=== PATIENT | male | born 1995 | race Caucasian/White ===

== ENCOUNTER 2021-02-11 19:19 | Emergency (ER) | payer SELFPAY ==
[~2021-02-11] VITALS: Ht 175.3 cm; Wt 88.2 kg
[2021-02-11] MEDS ORDERED: LIDOCAINE 1% MDV 20ML VIAL SC ONE (21:50)
[2021-02-11] MEDS ORDERED: NEOSPORIN OINT 0.9 GM PKT TOP ONE (22:10)
[2021-02-11 22:16] VITALS: BP 128/78
== END 2021-02-11 22:17 | disposition home or self-care (01) ==
LOC: M ED 19:19
DX: S61.011A Laceration without foreign body of right thumb without damage to nail, initial encounter (principal); W26.0XXA Contact with knife, initial encounter; Y92.89 Other specified places as the place of occurrence of the external cause; Y93.9 Activity, unspecified; Y99.0 Civilian activity done for income or pay